=== PATIENT | female | born 1950 | race Caucasian/White ===

== ENCOUNTER 2018-08-28 15:29 | Observation (INO) ==
--- NOTE | 2018-08-28 16:03 | Emergency Department Note ---
Disposition Clinical Impression: AUBREY (acute kidney injury), Pleural effusion, left Hepatic failure Qualifiers: Liver failure chronicity: chronic Hepatic coma status: without hepatic coma Qualified Code(s): K72.10 - Chronic hepatic failure without coma Disposition: Admitted As Inpatient Condition: Undetermined Referrals: Tate Okeefe MD [Primary Care Provider] - Forms: ED Satisfaction Letter, Work/School Release Time of Disposition: 17:24 Abdominal Pain HPI - General Chief Complaint: ED Abdominal Pain Stated Complaint: abd distention,pain Time Seen by Provider: 08/28/18 15:39 Source: patient Mode of arrival: ambulatory Limitations: no limitations Nursing Notes Reviewed: Yes Vital Signs Reviewed: Yes - History of Present Illness HPI Narrative: 68-year-old female with history of terminal liver cancer arrives to the emergenc y department with complaint of worsening abdominal ascites, difficulty in breathing when she lays down, and recent fall. The patient states that she has been feeling very weak and having trouble getting around with some associated shortness of breath. She denies any associated chest pain. The patient states she had a mechanical fall earlier today when she fell onto her knee and elbows. She is complaining of some skin abrasions without any overt complaints of pain. Patient denies striking her head and did not lose consciousness. The patient denies any other complaints at this time. She is lucid and answering questions appropriately. She has no confusion. Patient denies any other complaints at this time. She is jaundice on evaluation. The patient states that her last chemotherapy was roughly 1 year ago. Pain Scale: 6 - Related Data Home Medications Medication Instructions Recorded Confirmed Lactulose [Generlac] 10 gm PO TID 01/25/15 08/28/18 Nadolol [Corgard] 20 mg PO QAM 01/25/15 08/28/18 Omeprazole 40 mg PO DAILY 01/25/15 08/28/18 Promethazine HCl 25 mg PO Q6H PRN 01/25/15 08/28/18 Spironolactone 50 mg PO DAILY 01/25/15 08/28/18 Nadolol [Corgard] 40 mg PO QPM 08/28/18 08/28/18 Allergies Allergy/AdvReac Type Severity Reaction Status Date / Time No Known Allergies Allergy Verified 01/25/15 14:18 All systems ED: reviewed and negative except as stated. Constitutional: Reports: weakness. Denies: fever, chills Eyes: Denies: vision change ENT ED: Denies: congestion Cardiovascular: Denies: chest pain Respiratory: Reports: dyspnea. Denies: cough, sputum production Gastrointestinal: Reports: abdominal pain. Denies: nausea, vomiting, diarrhea, constipation, hematemesis, melena, hematochezia Genitourinary: Denies: urgency, dysuria, hematuria Musculoskeletal: Denies: back pain, neck pain, arthralgia, myalgia Integumentary: Denies: rash Neurological: Reports: weakness. Denies: headache, numbness, paresthesias, confusion Abdominal Pain PMH - Past Medical History Medical history: Reports: cancer, cirrhosis Female Surgical History: Reports: non-contributory Psychiatric history: Reports: no psych history - Social History Smoking status: Never smoker Alcohol use: Reports: none Drug use: Reports: none Physical Exam - General Limitations: no limitations General appearance: alert, in no apparent distress - Head Head exam: atraumatic, normocephalic, normal inspection - Eye Eye exam: Present: PERRL, EOMI, scleral icterus - ENT ENT exam: normal exam, normal oropharynx, mucous membranes moist - Neck Neck exam: Present: normal inspection, full ROM, trachea midline - Chest Chest inspection: Present: normal inspection, symmetric chest wall rise - Respiratory Respiratory exam: Present: normal lung sounds bilaterally - Cardiovascular Cardiovascular exam: Present: regular rate, normal rhythm, normal heart sounds - Abdominal Exam Abdominal exam: Present: soft, distention, ascites, scar. Absent: tenderness, guarding, rebound, rigidity, hernia - Extremities Exam Extremities exam: Present: full ROM. Absent: tenderness, pedal edema - Neurological Exam Neurological exam: Present: alert, oriented X3, CN II-XII intact, normal gait - Skin Skin exam: Present: warm, dry, other (jaundice, abrasions to bilateral elbows and left knee.) Course Vital Signs Temperature 97.7 F 08/28/18 15:38 Pulse Rate 79 08/28/18 15:38 Respiratory Rate 18 08/28/18 15:38 Blood Pressure 117/66 08/28/18 15:38 O2 Sat by Pulse Oximetry 97 08/28/18 15:38 Temperature 97.7 F 08/28/18 15:38 Pulse Rate 79 08/28/18 15:38 Respiratory Rate 18 08/28/18 15:38 Blood Pressure 117/66 08/28/18 15:38 O2 Sat by Pulse Oximetry 97 08/28/18 15:38 Oxygen Delivery Oxygen Delivery Room Air Abdominal Pain - MDM Narrative Medical decision making narrative: Patient's workup in the emergency department demonstrates findings consistent with hepatorenal syndrome. The patient has an elevated creatinine which appears new. Patient only has a mild elevation in creatinine but given the patient's symptoms I am concerned about hepatorenal syndrome. The patient's chest history demonstrates a new left-sided pleural effusion. She was given 20 of IV Lasix here in the ED. The patient was noted to be thrombus cytopenic which appears baseline for the patient. Patient will be admitted to the hospitalist for further workup and care. Accepted by Dr. Benites. - Medical Records Medical records reviewed: Yes I reviewed the patient's medical records. - Lab Data Lab results reviewed: Yes I reviewed the patient's lab results. Result diagrams: 08/28/18 16:11 08/28/18 16:11 Lab Results 08/28/18 08/28/18 08/28/18 Range/Units 16:11 16:11 16:11 WBC 4.5 (4.3-11.1) K/mcL RBC 3.36 L (3.82-4.97) M/mcL Hgb 11.6 (11.5-15.4) g/dL Hct 33.3 L (35.3-44.9) % MCV 99.1 (83.0-100.0) fL MCH 34.5 H (28.0-33.3) pg MCHC 34.8 (31.6-35.5) g/dL RDW 15.1 H (11.5-14.5) % Plt Count 68 L (140-400) K/mcL MPV 9.4 (9.4-12.4) fL Immature Gran % 0.2 (0-4) % Seg Neutrophils % 74.1 % Lymphocytes % 15.6 % Monocytes % 6.5 % Eosinophils % 2.9 % Basophils % 0.7 % Neutrophils # 3.3 (1.6-8.9) K/mcL Lymphocytes # 0.7 (0.6-4.6) K/mcL Monocytes # 0.3 (0.0-1.3) K/mcL Eosinophils # 0.1 (0.0-0.6) K/mcL Basophils # 0.0 (0.0-0.2) K/mcL Immature Plt Fraction 2.0 (1.1-6.1) % PT 20.1 H (9.4-12.1) Seconds INR 1.8 Sodium 137 (136-145) mEq/L Potassium 3.0 L (3.5-5.1) mEq/L Chloride 102 (98-107) mEq/L Carbon Dioxide 27 (23-29) mEq/L BUN 16 (8-23) mg/dL Creatinine 1.22 H (0.60-1.20) mg/dL Est GFR ( Amer) 53 L (> 60) Est GFR (Non-Af Amer) 44 L (> 60) BUN/Creatinine Ratio 13 (6-26) Glucose 87 (70-105) mg/dL Calculated Osmolality 285 (280-300) Calcium 8.3 L (8.6-10.3) mg/dL Total Bilirubin 6.2 H (0.3-1.0) mg/dL Direct Bilirubin 1.8 H (0.0-0.2) mg/dL Indirect Bilirubin 4.4 H (0.0-1.2) mg/dL AST 45 H (13-39) Units/L ALT 19 (7-52) Units/L Alkaline Phosphatase 111 H (34-104) Units/L Troponin I (< 0.04) ng/mL Serum Total Protein 7.5 (6.4-8.9) g/dL Albumin 2.4 L (3.5-5.7) g/dL Globulin 5.1 H (2.4-3.5) g/dL Albumin/Globulin Ratio 0.5 L (1.1-2.2) 08/28/18 Range/Units 16:11 WBC (4.3-11.1) K/mcL RBC (3.82-4.97) M/mcL Hgb (11.5-15.4) g/dL Hct (35.3-44.9) % MCV (83.0-100.0) fL MCH (28.0-33.3) pg MCHC (31.6-35.5) g/dL RDW (11.5-14.5) % Plt Count (140-400) K/mcL MPV (9.4-12.4) fL Immature Gran % (0-4) % Seg Neutrophils % % Lymphocytes % % Monocytes % % Eosinophils % % Basophils % % Neutrophils # (1.6-8.9) K/mcL Lymphocytes # (0.6-4.6) K/mcL Monocytes # (0.0-1.3) K/mcL Eosinophils # (0.0-0.6) K/mcL Basophils # (0.0-0.2) K/mcL Immature Plt Fraction (1.1-6.1) % PT (9.4-12.1) Seconds INR Sodium (136-145) mEq/L Potassium (3.5-5.1) mEq/L Chloride (98-107) mEq/L Carbon Dioxide (23-29) mEq/L BUN (8-23) mg/dL Creatinine (0.60-1.20) mg/dL Est GFR ( Amer) (> 60) Est GFR (Non-Af Amer) (> 60) BUN/Creatinine Ratio (6-26) Glucose (70-105) mg/dL Calculated Osmolality (280-300) Calcium (8.6-10.3) mg/dL Total Bilirubin (0.3-1.0) mg/dL Direct Bilirubin (0.0-0.2) mg/dL Indirect Bilirubin (0.0-1.2) mg/dL AST (13-39) Units/L ALT (7-52) Units/L Alkaline Phosphatase (34-104) Units/L Troponin I < 0.03 (< 0.04) ng/mL Serum Total Protein (6.4-8.9) g/dL Albumin (3.5-5.7) g/dL Globulin (2.4-3.5) g/dL Albumin/Globulin Ratio (1.1-2.2) - Radiology Data Radiology results reviewed: Yes I reviewed the patient's radiology results. Chest X-Ray 08/28/18 15:59 IMPRESSION: Moderate left pleural effusion. Hazy opacity throughout the left lung likely related to edema. D/ / Lizet Reyes MD / Lizet Reyes MD Interpreting Provider: Lizet Reyes MD - EKG Data EKG attestation: Yes I reviewed and interpreted this EKG. EKG results narrative: Heart rate 80 beats for minute. Normal sinus rhythm. No ST elevation or ST depression noted. EKG overall similar to EKG performed on 01/08/2006.
--- NOTE | 2018-08-28 16:07 | Emergency Department Note ---
Disposition Clinical Impression: Abdominal pain Qualifiers: Abdominal location: generalized Qualified Code(s): R10.84 - Generalized abdominal pain Disposition: Still a Patient Referrals: Tate Okeefe MD [Primary Care Provider] - Forms: ED Satisfaction Letter, Work/School Release General Adult HPI - General Chief complaint: ED Abdominal Pain Stated complaint: abd distention,pain Time Seen by Provider: 08/28/18 15:39 Source: patient Mode of arrival: ambulatory Limitations: no limitations Nursing Notes Reviewed: Yes Vital Signs Reviewed: Yes - History of Present Illness HPI Narrative: ED attending attestation note: I examined this patient and my medical decision-making was reviewed with the transitional resident Dr. Mcgovern. I agree with the documented findings, disposition and treatment plan as described except to the extent set forth below. Briefly: 60-year-old female history of terminal liver cancer comes in with distended abdomen feeling cold. She says for debridement when she lies down. She does have a slightly distended distended abdomen fluid wave. patient had a bedside pelvic ultrasound which showed some but not markedly degree of ascites pulled up due to the concern of not that much fluid and prior adhesions patient will be getting screening labs will be admitted for interventional radiologic paracentesis and for catheter placement. admission disposition pending. patient stable Pain Scale: 6 - Related Data Home Medications Medication Instructions Recorded Confirmed Ergocalciferol (VITAMIN D2) 50,000 unit PO 2XW 01/25/15 01/25/15 [Vitamin D2] Furosemide [Lasix] 0.5 - 1 tab PO BID 01/25/15 01/25/15 Lactulose [Generlac] 10 gm PO AD PRN 01/25/15 01/25/15 Nadolol [Corgard] 40 mg PO AD 01/25/15 01/25/15 Omeprazole 40 mg PO DAILY 01/25/15 01/25/15 Promethazine HCl 25 mg PO Q8H PRN 01/25/15 01/25/15 Spironolactone 0.5 tab PO DAILY 01/25/15 01/25/15 Allergies Allergy/AdvReac Type Severity Reaction Status Date / Time No Known Allergies Allergy Verified 01/25/15 14:18 Past Medical History - Past Medical History Medical history: Reports: cancer, cirrhosis Surgical history: Reports: no surgical history Psychiatric history: Reports: no psych history - Social History Smoking Status: Never smoker Smokeless Tobacco Status: No Alcohol use: Reports: none Drug use: Reports: none Physical Exam - General Limitations: no limitations General appearance: alert Course Vital Signs Temperature 97.7 F 08/28/18 15:38 Pulse Rate 79 08/28/18 15:38 Respiratory Rate 18 08/28/18 15:38 Blood Pressure 117/66 08/28/18 15:38 O2 Sat by Pulse Oximetry 97 08/28/18 15:38 Temperature 97.7 F 08/28/18 15:38 Pulse Rate 79 08/28/18 15:38 Respiratory Rate 18 08/28/18 15:38 Blood Pressure 117/66 08/28/18 15:38 O2 Sat by Pulse Oximetry 97 08/28/18 15:38 Oxygen Delivery Oxygen Delivery Room Air
[2018-08-28 16:24] LABS: Basophils % 0.7 %; Immature Granulocytes % 0.2 % (0-4); Mean Corpuscular Volume 99.1 fL (83.0-100.0)
[2018-08-28 16:26] LABS: Eosinophils # 0.1 K/mcL (0.0-0.6); Eosinophils % 2.9 %; Hematocrit 33.3 % (35.3-44.9); Hemoglobin 11.6 g/dL (11.5-15.4); Lymphocytes # 0.7 K/mcL (0.6-4.6); Lymphocytes % 15.6 %; Mean Corpuscular HGB Conc 34.8 g/dL (31.6-35.5); Mean Corpuscular Hemoglobin 34.5 pg (28.0-33.3); Mean Platelet Volume 9.4 fL (9.4-12.4); Monocytes # 0.3 K/mcL (0.0-1.3); Monocytes % 6.5 %; Neutrophils # 3.3 K/mcL (1.6-8.9); Red Blood Count 3.36 M/mcL (3.82-4.97); Red Cell Distribution Width 15.1 % (11.5-14.5); Segmented Neutrophils % 74.1 %
[2018-08-28 16:27] LABS: Platelet Count 68 K/mcL (140-400)
[2018-08-28 16:33] LABS: INR 1.8; Prothrombin Time 20.1 Seconds (9.4-12.1)
[2018-08-28 16:44] LABS: Albumin 2.4 g/dL (3.5-5.7); Albumin/Globulin Ratio 0.5 (1.1-2.2); Bilirubin,Direct 1.8 mg/dL (0.0-0.2); Bilirubin,Indirect 4.4 mg/dL (0.0-1.2); Bilirubin,Total 6.2 mg/dL (0.3-1.0); Calcium 8.3 mg/dL (8.6-10.3); Globulin 5.1 g/dL (2.4-3.5); Total Protein 7.5 g/dL (6.4-8.9)
[2018-08-28] MEDS ORDERED: Ondansetron 4 MG/2 ML VIAL IVP ONE (16:59)
[2018-08-28] MEDS ORDERED: Furosemide 20 MG/2 ML VIAL IVP ONE (17:21)
[2018-08-28] MEDS ORDERED: Naloxone 0.4 MG/ML INJ IVP PRN (17:23)
--- NOTE | 2018-08-28 18:43 | Internal Med History&Physical ---
Date of Encounter: 08/28/18 Time of Encounter: 18:38 Internal Medicine - H&P: HPI Chief complaint: abdominal distention Admitted From: Home Plans for Post Hospital Care: Transfer Other History of present illness: Ms. Maloney is a 68 year old female with history of cirrhosis and HCC s/p chemotherapy last time 1 year ago who follows with Dr. Dr. Bobbi Carson at [facility] presented to [facility] with complaint of worsening abdominal distention. she reports taht her abdomen has increased in girth for the past few days. she amira es N/v/D. denies abdominal pain however does report that her abdomen feels tense. she reports that she has liver cirrhosis etiology unknown and HCC and has been treated at [facility]. she reports tahats he is on lasix nad spironolactone which she is complaint with. in addition to above she also complains of worsening SOB and bilaetral leg edema. she reports orthopne and PND and has to prop herself up to aaleviate her symptoms. she denies hematemseis, hematochezia or melena. she denies fever or chills, no calf tenderness, palpiattions, chest pain, heat or cold intolerance, or prolonged immobilization however she has become more unsteady on her feet. family at bedside. i discussed code status and she would like to remain full code- she understand that her condition is serious. i discussed plan of care with patient and family ( including ) and since she follows with [facility] they would like her to be transferred to [facility] for further management of her symptoms. they understands risks of transfer and they would like her to be transferred. Past Med Surg Social Fam HX - Past Medical History Medical history: cancer, cirrhosis Additional medical history: liver cancer Psychiatric history: no psych history - Past Surgical History Surgical History: no surgical history - Social History Smoking Status: Never smoker Smokeless Tobacco Status: No Alcohol use: none Drug use: none Internal Medicine - H&P: Meds Lactulose [Generlac] 10 gm PO TID 01/25/15 [History] Nadolol [Corgard] 20 mg PO QAM 01/25/15 [History] Omeprazole 40 mg PO DAILY 01/25/15 [History] Promethazine HCl 25 mg PO Q6H PRN 01/25/15 [History] Spironolactone 50 mg PO DAILY 01/25/15 [History] Nadolol [Corgard] 40 mg PO QPM 08/28/18 [History] Allergy/AdvReac Type Severity Reaction Status Date / Time No Known Allergies Allergy Verified 01/25/15 14:18 All Systems PM: A 10-system review of systems was performed and is negative for pertinent findings except as documented above in the HPI. - Constitutional Vitals: Temp Pulse Resp BP Pulse Ox 97.7 F 80 16 105/58 100 08/28/18 15:38 08/28/18 18:16 08/28/18 18:16 08/28/18 18:16 08/28/18 18:16 Exam: General: Patient is alert, oriented, no acute distress, speaks in full sentences, Head: atraumatic, normocephalic, jaundiced Eye: sclera icterus, EOMI intact ENT: mucous membranes moist, normal external ear exam Neck: normal inspection, trachea midline, full ROM, no carotid bruits Chest: normal inspection, symmetric chest rise Respiratory: crackles in the left posterior lung ruiz, no wheezing, speaks in full sentences Cardiovascular: Regular rate and rhythm. s1 and s2 No clicks, rubs, gallops, or murmors. Abdomen: Bowel sounds present normoactive x-4 quadrants. abdomen is distended, no rebound, +ve ascites, could not appreciate organomegally musculoskeletal: Spontaneously moving all extremities. +2 edema of bilaetral lower extremities, no calf tenderness Skin: warm, dry, intact. jaundiced Neuro: Alert and oriented x4. no focal deficit Psych: Patient's affect is normal Internal Med - H&P Results - Labs CBC & Chem 7: 08/28/18 16:11 08/28/18 16:11 Labs: Short CBC 08/28/18 Range/Units 16:11 WBC 4.5 (4.3-11.1) K/mcL Hgb 11.6 (11.5-15.4) g/dL Hct 33.3 L (35.3-44.9) % Plt Count 68 L (140-400) K/mcL Neutrophils # 3.3 (1.6-8.9) K/mcL BMP 08/28/18 16:11 Sodium 137 Potassium 3.0 L Chloride 102 Carbon Dioxide 27 BUN 16 Creatinine 1.22 H Glucose 87 Calcium 8.3 L Cardiac Enzymes 08/28/18 Range/Units 16:11 Troponin I < 0.03 (< 0.04) ng/mL Liver Function 08/28/18 Range/Units 16:11 Total Bilirubin 6.2 H (0.3-1.0) mg/dL Direct Bilirubin 1.8 H (0.0-0.2) mg/dL AST 45 H (13-39) Units/L ALT 19 (7-52) Units/L Alkaline Phosphatase 111 H (34-104) Units/L Albumin 2.4 L (3.5-5.7) g/dL - Impressions ITS Impressions Chest X-Ray 08/28/18 15:59 IMPRESSION: Moderate left pleural effusion. Hazy opacity throughout the left lung likely related to edema. D/ / Lizet Reyes MD / Lizet Reyes MD Interpreting Provider: Lizet Reyes MD - Assessment and Plan (1) Decompensated hepatic cirrhosis Current Visit: Yes Status: Acute Assessment and plan: patient with ascites and known HCC and cirrhosis - follows with Dr. Bobbi Carson at [facility] as per family including at bedside she has had "treatment where they had placed seeds in the liver at [facility]" after speaking to the family further they would like her to be transferred to [facility] as she has had all her work up performed at [facility] and for her to be evaluated by gastroenterology for further management of her decompensated cirrhosis they understand risk and benefits of transfer and would like her to be transferred [facility] she received one dose of lasix in the ED MELD score of 22 currently BP is borderline will re-evalauate her in the AM to see about diuresing her again ( BP borderline post lasix and she has developed AUBREY) continue with BB will need diagnostic and therapeutic paracentesis continue with protonix high risk for SBP- started on ceftriaxone took home spironolactone dose this AM - will follow renal functions in the AM and if improved will consider continuing. (2) ARF (acute renal failure) Current Visit: Yes Status: Acute Assessment and plan: ?secondary to medication vs volume overload vs hepatorenal syndrome baseline creatinine from 03/2018- 1.10 currently 1.22 unsure if its hepatorenal as UA and urine lytes are pending no recent creatinine to compare the most recent in march. - however it has not increased by 50% from march creatinine. received one dose of lasix in the ED renal US follow BMP in AM will consult IR for therapeutic and diagnostic paracentesis will follow creatinine if it continues to rise will consider normal saline and a lbumin challenge will consult nephrology Qualifiers: Acute renal failure type: unspecified Qualified Code(s): N17.9 - Acute kidney failure, unspecified (3) Pleural effusion, left Current Visit: Yes Status: Acute Assessment and plan: most likely secondary to cirrhosis and fluid overload will consult Pulmonology/IR for therapeutic and diagnostic thoracocentesis currently saturating well on RA and not in respiratory distress TTE in AM received one dose of lasix in the ED. (4) Thrombocytopenia Current Visit: Yes Status: Acute Assessment and plan: no signs of bleeding continue to monitor for bleeding will follow platelets along with H/H avoid Anticogaulation or NSAIDs (5) Hypokalemia Current Visit: Yes Status: Acute Assessment and plan: replaced in the ED follow BMP in AM (6) DVT prophylaxis Current Visit: Yes Status: Acute Assessment and plan: scd - Time Spent With Patient Total time spent is greater than 50% in coordination of care (as documented) at patient's floor/unit and/or counseling patient:
[2018-08-28] MEDS ORDERED: cefTRIAXone 2,000 MG in Water for inj. (sterile) 20 ML 20 ML IVP SCH (19:00)
[2018-08-28] MEDS ORDERED: Thiamine (B-1) 100 MG TABLET PO SCH (19:45)
--- NOTE | 2018-08-28 19:47 | Discharge Summary ---
Orders not resulted at time of discharge: Pending orders 08/28/18 15:57 Urinalysis Reflex Cult & Micro [URIN] Stat ECG 12 lead ECG [ECG] Stat 08/28/18 17:23 Urinalysis reflex Microscopic [URIN] Stat 08/28/18 17:25 Chloride,Urine [UCHEM] Stat Osmolality,Urine [UCHEM] Stat Potassium,Urine [UCHEM] Stat Sodium, Urine [UCHEM] Stat 08/28/18 19:09 retroperitoneal ultrasound - limited [US retroperitoneal limited] [US] Routine 08/29/18 04:00 Complete Blood Count w/o Diff [HEME] AM 0400 Comprehensive Metabolic Panel AM 0400 Lipid Panel AM 0400 Magnesium AM 0400 Phosphorous AM 0400 Date of Encounter: 08/28/18 Time of Encounter: 19:45 - Discharge Diagnosis (1) Decompensated hepatic cirrhosis Priority: Primary Status: Acute (2) ARF (acute renal failure) Priority: Secondary Status: Acute Qualifiers: Acute renal failure type: unspecified Qualified Code(s): N17.9 - Acute kidney failure, unspecified (3) Pleural effusion, left Priority: Secondary Status: Acute (4) Thrombocytopenia Priority: Secondary Status: Acute (5) Hypokalemia Priority: Secondary Status: Acute (6) DVT prophylaxis Priority: Secondary Status: Acute Hospital course: Ms. Maloney is a 68 year old female with history of cirrhosis and HCC s/p chemotherapy last time 1 year ago who follows with Dr. Dr. Bobbi Carson at [facility] presented to [facility] Ed with complaint of worsening abdominal distention. she reports taht her abdomen has increased in girth for the past few days. she denies N/v/D. denies abdominal pain however does report that her abdomen feels tense. she reports that she has liver cirrhosis etiology unknown and HCC and has been treated at [facility]. she reports tahats he is on lasix nad spironolactone which she is complaint with. in addition to above she also complains of worsening SOB and bilaetral leg edema. she reports orthopnea and PND and has to prop herself up to alleviate her symptoms. she denies hematemseis, hematochezia or melena. she denies fever or chills, no calf tenderness, palpitations, chest pain, heat or cold intolerance, or prolonged immobilization however she has become more unsteady on her feet- she denies head trauma or headache, vision changes. family at bedside. i discussed code status and she would like to remain full code- she understand that her condition is serious. while in the ED she was found to have MELD score of 22 along with elevated creatinine 1.22 with left sided pleural effusion on XRAY along with ascites. she received one dose of lasix in the ED with some improvement in her respiratory status. she was endorsed for further management of her decompensated cirrhosis. Ct head ordered and pending night team to follow- ammonia level sent will follow along with blood cx i discussed plan of care with patient and family ( including ) and since she follows with [facility] they would like her to be transferred to [facility] for further management of her symptoms. they understands risks of transfer and they would like her to be transferred. [facility] called and accepting physician is Brayan Gardner- i discussed with family that the bed is pending they understand. nursing staff aware of transfer Discharge discussed with: patient, family - Time Spent with Patient Total time spent providing and/or coordinating discharge services: Time spent: Greater than 30 minutes (40) - Discharge Medications Prescriptions: No Action Promethazine HCl 25 mg PO Q6H PRN PRN Reason: Nausea And Vomiting Omeprazole 40 mg PO DAILY Lactulose [Generlac] 10 gm PO TID Nadolol [Corgard] 20 mg PO QAM Spironolactone 50 mg PO DAILY Nadolol [Corgard] 40 mg PO QPM Home Medications: Lactulose [Generlac] 10 gm PO TID 01/25/15 [History] Nadolol [Corgard] 20 mg PO QAM 01/25/15 [History] Omeprazole 40 mg PO DAILY 01/25/15 [History] Promethazine HCl 25 mg PO Q6H PRN 01/25/15 [History] Spironolactone 50 mg PO DAILY 01/25/15 [History] Nadolol [Corgard] 40 mg PO QPM 08/28/18 [History] Allergies/Adverse Reactions: Allergy/AdvReac Type Severity Reaction Status Date / Time No Known Allergies Allergy Verified 01/25/15 14:18 Date of admission: 08/28/18 17:59 Primary care physician: Tate Okeefe MD Consults: 08/28/18 18:22 Consult to Case Management [CONS] Routine Comment: Consult to Nutrition [CONS] Routine Comment: Consulting Provider: NUTRITION Reason for Dietary Consult: PO Supplementation Consult to Physical Therapy [CONS] Routine Comment: Evaluate, develop and implement POC Reason for Consult: dispostion Does patient have active BEDREST order?: No Is patient medically & hemodynamically stable?: Yes Patient assessed for mobility or mobilized this visit?: Yes OT [Consult to Occupational Therapy] [CONS] Routine Comment: Evaluate, develop and implement POC Reason for Consult: disposition Does patient have active BEDREST order?: No Is patient medically & hemodynamically stable?: Yes Patient assessed for mobility or mobilized this visit?: Yes - Constitutional Vitals: Temp Pulse Resp BP Pulse Ox 97.7 F 80 16 106/58 100 08/28/18 15:38 08/28/18 18:16 08/28/18 19:30 08/28/18 19:30 08/28/18 18:16 Exam: General: Patient is alert, oriented, no acute distress, speaks in full sentences, Head: atraumatic, normocephalic, jaundiced Eye: sclera icterus, EOMI intact ENT: mucous membranes moist, normal external ear exam Neck: normal inspection, trachea midline, full ROM, no carotid bruits Chest: normal inspection, symmetric chest rise Respiratory: crackles in the left posterior lung ruiz, no wheezing, speaks in full sentences Cardiovascular: Regular rate and rhythm. s1 and s2 No clicks, rubs, gallops, or murmors. Abdomen: Bowel sounds present normoactive x-4 quadrants. abdomen is distended, no rebound, +ve ascites, could not appreciate organomegally musculoskeletal: Spontaneously moving all extremities. +2 edema of bilaetral lower extremities, no calf tenderness Skin: warm, dry, intact. jaundiced Neuro: Alert and oriented x4. no focal deficit Psych: Patient's affect is normal - Patient Status Disposition: Transfer Other Condition: Undetermined Functional capacity at discharge: uses cane/walker Overall status at discharge: patient is not back to baseline - Discharge Instructions Follow Up With: Tate Okeefe MD [Primary Care Provider] - - Diet and Activity Activity: other Diet: low salt diet
[2018-08-28 20:57] LABS: Bilirubin,Urine Negative (Negative); Blood,Urine Negative (Negative); Clarity,Urine Clear (Clear); Color,Urine Yellow (Yellow); Glucose,Urine (UA) Normal (Normal); Ketones,Urine Negative (Negative); Leukocyte Esterase,Urine Negative (Negative); Nitrite,Urine Negative (Negative); PH,Urine 6.5 pH Units (5.0-8.0); Protein,Urine Negative (Neg-Trace); Specific Gravity,Urine 1.011 (1.010-1.025); Urobilinogen,Urine Normal (Normal)
[2018-08-28 21:07] LABS: Potassium,Urine 10.9 mEq/L; Sodium, Urine 65.1 mEq/L
[2018-08-28] MEDS: Lactulose Oral Soln 20 GM/30 ML UDC PO SCH ×2 (21:11→21:35)
[2018-08-29 03:23] VITALS: BP 94/51
[2018-08-29 06:14] LABS: Hematocrit 25.4 % (35.3-44.9); Red Cell Distribution Width 15.1 % (11.5-14.5)
[2018-08-29 06:15] LABS: Hemoglobin 8.8 g/dL (11.5-15.4); Immature Platelets 2.1 % (1.1-6.1); Mean Corpuscular HGB Conc 34.6 g/dL (31.6-35.5); Mean Corpuscular Hemoglobin 34.6 pg (28.0-33.3); Mean Platelet Volume 10.6 fL (9.4-12.4); Red Blood Count 2.54 M/mcL (3.82-4.97)
[2018-08-29 06:31] LABS: Albumin 1.9 g/dL (3.5-5.7); Albumin/Globulin Ratio 0.5 (1.1-2.2); Bilirubin,Total 4.7 mg/dL (0.3-1.0); Magnesium 1.9 mg/dL (1.6-2.6); Phosphorous 2.6 mg/dL (2.7-4.5); Potassium 3.5 mEq/L (3.5-5.1); Total Protein 5.9 g/dL (6.4-8.9)
[2018-08-29 06:32] LABS: Chol/HDL Ratio 4.5 (0-4.9)
--- NOTE | 2018-09-02 13:02 | Electrocardiograph Report ---
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
== END 2018-08-29 05:28 | disposition other institution (70) ==
LOC: EMEROOARM 15:29 → 3BNU 15:29
PROVIDERS: ADMIT Internal Medicine; ATTEND Internal Medicine